=== PATIENT | male | born 1960 | race Caucasian/White ===

== ENCOUNTER 2022-09-06 12:50 | Outpatient (CLI) | payer BC, SELFPAY ==
[2022-09-06 13:10] LABS: Basophils Percent Auto 1.1 % (0.0-1.0); Eosinophils Absolute Auto 0.16 K/mm3 (0.02-0.50); Eosinophils Percent Auto 1.8 % (1.0-6.0); Hematocrit 47.3 % (40.0-54.0); Hemoglobin 16.2 g/dL (14.0-18.0); Immature Granulocyte Absolute 0.02 K/mm3 (0.00-0.00); Immature Granulocyte Percent A 0.2 % (0.0-0.0); Lymphocytes Absolute Auto 3.47 K/mm3 (1.10-4.50); Lymphocytes Percent Auto 38.9 % (18.0-42.0); Mean Corpuscular HGB Conc 34.2 g/dL (32.0-36.0); Mean Corpuscular Hemoglobin 30.3 pg (27.0-31.0); Mean Corpuscular Volume 88.6 fL (78.0-102.0); Mean Platelet Volume 10.7 fl (8.7-11.0); Monocytes Absolute Auto 0.54 K/mm3 (0.10-0.90); Monocytes Percent Auto 6.1 % (2.0-11.0); Neutrophils Absolute Auto 4.6 K/mm3 (1.7-7.2); Neutrophils Percent Auto 51.9 % (50.0-70.0); Platelet Count Result 217 K/mm3 (150-420); Red Blood Count 5.34 M/mm3 (4.70-6.10); Red Cell Distribution Width 12.8 % (11.6-14.4); White Blood Count 8.9 K/mm3 (4.8-10.8)
[2022-09-06 13:11] LABS: Appearance Urine Clear (Clear); Bilirubin Urine Negative (Negative); Blood Urine Negative (Negative); Color Urine Light Yellow (Yellow); Glucose Urine UA Negative (Negative); Ketones Urine Negative (Negative); Leukocyte Esterase Ur Negative (Negative); Nitrate Urine Negative (Negative); Protein Urine Negative (Negative); Urobilinogen Urine 0.2 mg/dL (0.2-1.0)
[2022-09-06 13:13] LABS: Add Urine Microscopic? NO
[2022-09-06 13:56] LABS: Alanine Aminotransferase 29 U/L (16-63); Albumin Level 3.9 g/dL (3.4-5.0); Alkaline Phosphatase 67 U/L (46-116); Anion Gap 8 mmol/L (8-16); Aspartate Amino Transferase 19 U/L (15-37); Bilirubin,Total 0.5 mg/dL (0.00-1.00); Blood Urea Nitrogen 14 mg/dL (7-18); Calcium 8.8 mg/dL (8.5-10.1); Carbon Dioxide 27 mmol/L (21-32); Chloride 102 mmol/L (98-108); Cholesterol 153 mg/dL (0-200); Estimated Glomerular Filt Rate > 60; Glucose 73 mg/dL (70-99); HDL Direct 40 mg/dL (40-60); LDL Cholesterol Calculated 94 mg/dL (<130); Osmolality Calculated 283 mOsm/kg (285-295); Potassium 4.3 mmol/L (3.5-5.1); Prostate Specific Antigen 1.4 ng/mL (< OR = 4.0); Sodium 137 mmol/L (136-145); Total Protein 7.2 g/dL (6.4-8.2); Triglycerides 96 mg/dL (0-150)
[2022-09-13 04:53] LABS: Hepatitis C Virus Antibody Reactive (Nonreactive)
[2022-09-13 19:21] LABS: Hepatitis C Viral RNA PCR 5290000 IU/mL
== END 2022-09-06 12:51 | disposition home or self-care (01) ==
LOC: CHSLAB 12:56
PROVIDERS: PCP Internal Medicine; Visit Provider Internal Medicine
DX: B19.20 Unspecified viral hepatitis C without hepatic coma (principal); Z13.6 Encounter for screening for cardiovascular disorders; Z12.5 Encounter for screening for malignant neoplasm of prostate
CPT/HCPCS: 36415; 80053; 80061; 81003; 84153; 85025; 86803; 87522; G0103

== ENCOUNTER 2024-09-21 14:30 | Outpatient (CLI) | payer OTHER, SELFPAY ==
[2024-09-21 14:47] LABS: Basophils Absolute Auto 0.08 K/mm3 (0.00-0.10); Eosinophils Absolute Auto 0.08 K/mm3 (0.02-0.50); Hematocrit 46.3 % (40.0-54.0); Hemoglobin 15.7 g/dL (14.0-18.0); Immature Granulocyte Absolute 0.02 K/mm3 (0.00-0.00); Immature Granulocyte Percent A 0.2 % (0.0-0.0); Lymphocytes Absolute Auto 2.61 K/mm3 (1.10-4.50); Lymphocytes Percent Auto 32.4 % (18.0-42.0); Mean Corpuscular HGB Conc 33.9 g/dL (32-36); Mean Corpuscular Hemoglobin 30.3 pg (27.0-31.0); Mean Corpuscular Volume 89.4 fL (78.0-102.0); Mean Platelet Volume 10.5 fl (8.7-11.0); Monocytes Absolute Auto 0.56 K/mm3 (0.10-0.90); Monocytes Percent Auto 6.9 % (2.0-11.0); Neutrophils Absolute Auto 4.71 K/mm3 (1.70-7.20); Neutrophils Percent Auto 58.5 % (50.0-70.0); Platelet Count Result 214 K/mm3 (150-420); Red Blood Count 5.18 M/mm3 (4.70-6.10); Red Cell Distribution Width 12.8 % (11.6-14.4); White Blood Count 8.1 K/mm3 (4.8-10.8)
--- OUTSIDE RECORDS SUMMARY | 2024-09-21 14:54 | XMS_ITS | Encounter Summary ---
Author Organization [facility] Address [address] [place] [address] Care Team Providers Care C S S Representative Name Role Phone Orlando Leal MD Primary Care Provider [phone] Reason for Visit * Reason Onset Date Comments MEDICATION REFILL 10/01/2023 Encounter Details Date Type Department Care Team (Late st Contact Info) Description 10/01/2023 Refill [facility] [address] [place] [address] Nancy Santillan, NUT FORMER-TASSEL MAKING MACHINE OPERATOR [address] [place] [id number] MEDICATION REFILL Social History Tobacco Use Types Packs/Day Years Used Date Smoking Tobacco: Former Cigarettes Smokeless Tobacco: Never Alcohol Use Standard Drinks/Week Comments Yes 0 (1 standard drink = 0.6 oz pure alcohol) on occasion- on weekends summer time. Sex and Gender Information Value Date Recorded Sex Assigned at Not on file Legal Sex Male 2:45 PM CDT Gender Identity Not on file Sexual Orientation Not on file documented as of this encounter Plan of Treatment Not on file documented as of this encounter Goals Goal Patient Goal Type Associated Problems Recent Progress Patient-Stated? Author Medication Management General On track( 024 11:39 AM CDT) Alisa Smith, RN Note: Expected end date: Omgoing Interventions: Take all medications as prescribed Let your doctor know right away about any changes in your medications Make sure to request a refill of your medication at least one week prior to your last dose documented as of this encounter Visit Diagnoses Not on filedocumented in this encounter Care Teams C S S Representative Relationship Specialty [place] [address] [place] [id number] PCP - General Internal Medicine 07/26/23 documented as of this encounter
--- OUTSIDE RECORDS SUMMARY | 2024-09-21 14:54 | XMS_ITS | Clinical Summary ---
Author Organization [facility] [employer] Address [address] [place] [address] Care Team Providers Care Cellular Biologist Name Role Phone Orlando Leal MD Primary Care Provider [phone] Source Comments [facility],non-owned Affiliates and Associated Physician Practices is amultiple site organization consisting of ambulatory clinics and hospital sitesin [place], [place], [place] and [place]. This disclosure is being madepursuant to the Care Everywhere program and may not contain all information available regarding this patient. Last updated 18.[facility] [employer] Allergies No known active allergies Medications * Be aware that medications may not be up to date on this document. Alwaysverify current medications with the patient. Epclusa 400-100 MG TABS Take 1 tablet by mouth once daily Dispense epclusa brand 28 tablet 2 08/27/2023 Active Active Problems Problem Noted Date Diagnosed Date Chronic hepatitis C without hepatic coma 023 07/26/2023 Overview (08/05/2023): 07/26/23 Fibroscan CAP 253, LSM 4.2 kPa Hepatitis Core antibody non reactive no immunity to hepatitis B Genotype 1a or 1b Family History Medical History Relation Name Comments Dementia Father COPD - Chronic Obstructive Pulmonary Disease Mother Relation Name Status Comments Father Mother Social History Tobacco Use Types Packs/Day Years Used Date Smoking Tobacco: Every Day Cigarettes Smokeless Tobacco: Never Tobacco Cessation:Ready to Q uit: Not Asked; Counseling Given: Not Answered Alcohol Use Standard Drinks/Week Comments Not Currently 0 (1 standard drink = 0.6 oz pure alcohol) on occasion- on weekends summer time. Sex and Gender Information Value Date Recorded Sex Assigned at Not on file Legal Sex Male 2:45 PM CDT Gender Identity Not on file Sexual Orientation Not on file Last Filed Vital Signs Vital Sign Reading Time Taken Comments Blood Pressure 125/89 10/04/2023 11:32 AM CDT Pulse 67 10/04/2023 11:32 AM CDT Temperature 35.9 C (96.7 F) 10/04/2023 11:32 AM CDT Respiratory Rate - - Oxygen Saturation 97% 10/04/2023 11:32 AM CDT Inhaled Oxygen Concentration - - Weight 75.5 kg (166 lb 6.4 oz) 10/04/2023 11:32 AM CDT Height 177.8 cm (5' 10) 10/04/2023 11:32 AM CDT Body Mass Index 23.88 10/04/2023 11:32 AM CDT Plan of Treatment Health Maintenance Due Date Last Done Comments COLON MONITORING 1962 COLONOSCOPY - COLON CA SCREENING 1962 CT COLONOGRAPHY - COLON CA SCREENING 1962 FIT - COLON CA SCREENING 1962 FLEX SIG - COLON CA SCREENING 1962 LIPID TESTING 1962 HIV SCREENING 1977 DTAP/TDAP/TD VACCINES (1 - Tdap) 1981 PNEUMOCOCCAL VACCINE 50+ (1 of 2 - PCV) 1981 ZOSTER VACCINE (1 of 2) 2012 HEPATITIS B VACCINE (1 of 3 - Risk 3-dose series) 2022 Respiratory Syncytial Virus (RSV) Vaccine Pt: or over 60 yrs (1 - Risk 60-74 years 1-dose series) 2022 COVID-19 VACCINE (3 - season) 2023 03/11/2021, 02/04/2021 DEPRESSION SCREENING 04/22/2024 INFLUENZA VACCINE (Season Ended) 2024 COLOGUARD (AGES 45-75) - COLON CA SCREENING 10/09/2025 10/09/2022 Colorectal Cancer Screening 10/09/2025 HEPATITIS C SCREENING Completed 10/04/2023 , 10/04/2023, 10/04/2023, Additional history exists HIB VACCINE Aged Out No longer eligi ble based on patient's age to complete this topic HPV VACCINE Aged Out No longer eligi ble based on patient's age to complete this topic MENINGOCOCCAL (Group B) VACCINE SHARED DECISION-MAKING Aged Out No longer eligible based on patient's age to complete this topic MENINGOCOCCAL GROUPS A/C/Y/W VACCINE Aged Out No longer eligible based on patient's age to complete this topic Goals Goal Patient Goal Type Associated Problems [...] one week prior to your last dose Procedures Procedure Name Priority Date/Time Associated Diagnosis Comments HEPATITIS C RNA QUANTITATIVE Routine 10/04/2023 1:24 PM CDT Chronic hepatitis C without hepatic coma from Last 3 Months or Most Recently Relevant to Health Maintenance Results * (ABNORMAL) HEPATITIS C RNA QUANTITATIVE (10/04/2023 1:24 PM CDT) Hepatitis C Virus Quant by PCR, Blood 55(H) Not detected IU/mL 10/07/2023 12:52 PM CDT [facility] Hepatitis C RNA PCR, Interp Detected( A) Not detected 10/07/2023 12:52 PM CDT [facility] Hepatitis C Quant by PCR, Log 1.7 log IU/mL 10/07/2023 12:52 PM CDT [facility] Blood BLOOD SPECIMEN / Unknown Lab Venipuncture / Unknown 10/04/2023 1:24 PM CDT 10/04/2023 1:48 PM CDT Narrative [facility] - 10/07/2023 12:52 PM CDT The Hepatitis C viral (HCV) RNA analysis utilized a serum sample, real-time reverse service operations manager PCR, and is reported as Not Detected, Detected (<12 IU/mL), Quantity (IU/mL) or >30,000,000 IU/mL. The limit of quantitation of the assay is 12 IU/mL (100% of samples with this HCV RNA level were detected). The linear range is from 12 IU/mL to 30,000,000 IU/mL. Values less than 12 IU/mL are reported as Detected (<12 IU/mL). Values greater than 30,000,000 IU/mL are reported as >30,000,000 IU/mL. The detection/quantitation of HCV RNA in serum is based on the isolation of HCV RNA with reverse service operations manager of genomic HCV RNA followed by real-time PCR in the presence of an unrelated RNA internal control. The internal control ensures that RNA is isolated, and that no general significant inhibitors of the RT-PCR process are present. The analysis was performed using a [place] FDA approved test methodology. Nancy Santillan CONDUIT CLEANER-SURVEYOR ROD HELPER LAB - CHEMISTRY KARY MOORE Final Result [facility] [address] [place], [place] [address], [facility] [phone] from Last 3 Months or Most Recently Relevant to Health Maintenance Insurance [employer]THE[employer] Care Teams Cellular Biologist Relationship Specialty Start Date End Date Orlando Leal MD [address] [place] [phone] PCP - General Internal Medicine 07/26/23
--- OUTSIDE RECORDS SUMMARY | 2024-09-21 14:54 | XMS_ITS | Data Portability ---
Author Organization [place] [facility] [employer], Main Office Address [address] [place] [address] Assessment Encounter Date Assessment Date Assessment LastModified by Organization Details LastModified Time 08/31/2022 08/31/2022 Obtain updated viral hepatitis C numbers blood work Chantix smoking cessation LD CT chest follow-up in 6-8 weeks. Family history of AAA will screen Not available 09/16/2022 14:07:21 03/19/2023 03/19/2023 Hepatology see me 6 months Tdap because of new grandbaby due in family [email or web address] Not available 03/19/2023 22:13:31 Plan of Treatment Reminders Order Date Submit Date Provider Last Modified By Organization Details Last Modified Time Details Appointments None recorded. Lab PSA, total, serum or plasma 2022 023 [facility] (Lab), [address] [place], [address], 3 09:08:32 CMP, serum or plasma 2022 023 [facility] (Lab), [address] [place], [address], 3 09:08:32 lipid panel, serum 2022 023 [facility] (Lab), [address] [place], [address], 3 09:08:32 urinalysis, microscopic 2022 023 [facility] (Lab), [address] [place], [address], 3 09:08:32 hepatitis C virus RNA, quant, PCR, serum or plasma 2022 023 [facility] (Lab), [address] [place], [address], 3 13:10:59 CBC w/ auto diff 2022 023 [facility] (Lab), [address] [place], [address], 3 09:08:33 Referral hepatologis t referral 2022 023 [email or web address] [facility], [facility] [place], [address], 4 19:00:35 Procedures None recorded. Surgeries None recorded. Imaging LDCT, chest, for lung cancer screening - Approved [id number] 08/31/2022-2022 023 [facility] ([facility] Sched[facility]), [address] [place], [address], 3 10:00:02 US, abdominal aorta 2022 023 [facility] ([facility] Scheduling), [address] [place], [address], 3 09:06:17 Medication Orders Chantix Continuing Month Box 1 mg tablet 2022 023 [email or web address] [facility] #[id number], [address], [place], [id number], 3 16:11:12 Chantix Starting Month Box 0.5 mg (11)-1 mg (42) tablets in dose pack 2022 023 [email or web address] [id number], [address], [place], [id number], 16:11:12 Patient TargetsNo targets recorded. Patient InstructionsNo instructions recorded. 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 A negat ora Colog uard resul t indic ates a low likel ihood that a color ectal cance r (CRC) or advan ellen adeno ma (naty omato us polyp s with more advan ellen pre-m align ant featu res) is prese nt. The [facility] e that a perso n with a negat ora Colog uard test has a color ectal cance r is less than 1 in 1500 (nega tive predi ctive value >99.9 %) or has an advan ellen adeno ma is less than 5.3% (nega tive predi ctive value 94.7% ). These data are based on a prosp ectiv e cross -sect ional study of 10,00 0 indiv idual s at [place] [facility] risk for color ectal cance r who were scree trista with both Colog uard and colon oscop y. (Don Brar. et al, N Engl J Med 2014; 370(1 4):12 86-12 97) The serene l value (refe rence range ) for this assay is negat ora. COLOG UARD RE-SC REENI NG RECOM MENDA TION: Perio dic color ectal cance r scree priti is an impor tant part of preve ntive healt hcare for asymp tomat ic indiv idual s at [place] risk for color ectal cance r. Follo wing a negat ora Colog uard resul t, the Ameri can Cance r Socie ty and U.S. Multi -Soci ety Task Force scree priti guide lines recom mend a Colog uard re-sc frida guajardo inter marifer of 3 years . Refer ences : Ameri can Cance r Socie ty Guide line for Color ectal Cance r Scree priti: https ://marilyn w.can cer.o rg/ca ncer/ colon -rect al-ca ncer/ detec tion- diagn osis- stagi ng/ac s-rec ommen datio ns.ht ml.; Ronnie DK, Marisol strong CR, Sindy perez JK, Color ectal Cance r Scree priti: Recom menda tions for Physi cians and Patie nts from the U.S. Multi -Soci ety Task Force on Color ectal Cance r Scree priti , Am Mandy sappntsukhdeep rolog y 2017; 112:1 016-1 030. TEST DESCR IPTIO N: [place] site algor ithmi c dylan sis of stool DNA-b rios huitron with hemog lobin immun oassa y. Quant itati ve value s of indiv idual bioma rkers are not repor table and are not assoc iated with indiv idual bioma rker resul t refer ence range s. Colog uard is inten ded for color ectal cance r scree priti of adult s of eithe r sex, 45 years or older , who are at [facility] for color ectal cance r (CRC) . Colog uard has been appro taryn for use by the U.S. FDA. The perfo rmanc e of Colog uard was estab lishe d in a cross secti onal study of [facility] adult s aged 50-84 . Colog uard perfo rmanc e in patie nts ages 45 to 49 years was estim ated by alcides-dorene mejia dylan sis of near- age group s. Colon oscop ies perfo rmed for a posit ora resul t may find as the most clini maxine signi fican t lesio n: color ectal cance r [4.0% ], advan ellen adeno ma (incl uding sessi le titus dawna polyp s great er than or equal to 1cm diame ter) [20%] or non- advan ellen adeno ma [31%] ; or no color ectal neopl marielos [45%] . These estim ates are deriv ed from a prosp ectiv e cross -sect ional scresukhdeep leosg study of 0 indiv idual s at [facility] risk for color ectal cance r who were scree trista with both Colog uard and colon oscop y. (Don Bull et al, N Engl J Med 2014; 370(1 4):12 86-12 97.) Colog uard may produ ce a false negat ora or false posit ora resul t (no color ectal cance r or preca ncero us polyp prese nt at colon oscop y follo w up). A negat ora Colog uard test resul t does not guara ntee the absen ce of CRC or advan ellen adeno ma (pre- cance r). The curre nt Colog uard scree priti inter marifer is every 3 years . (Amer ican Cance r Socie ty and U.S. Multi -Soci ety Task Force ). Colog uard perfo rmanc e data in a 0 patie nt pivot al study using colon oscop y as the refer ence metho d can be acces sed at the follo wing locat ion: www.e xactl abs.c om/re mitchell . Addit ional descr iptio n of the Colog uard test proce ss, warni ngs and preca ution s can be found at www.c ologu aubree.c om. Not Available [facility] [employer] [facility] (Cologuard Orders Only) [address], [place], [address], 10/18/2022 01:07:17 09/15/1909/14/2022 LDCT, chest , for lung cance r scree priti [facility] [place] [address] [facility] [address] [phone] Patien t Name: BRUNO EAGLE Access ion #: [id number] Sex: M : 1960 4 4 Locati on: RAD Attend ing Physic eriberto: KING LEAL Orderi ng Physic eriberto: KING LEAL Exam Date: 023 8:40 AM Exam Name: CT LOW DOSE CNCR SCREEN ING Admitt ing Diagno sis(es ): RADIOL OGY REPORT - FINAL EXAM: CT LOW DOSE CNCR SCREEN ING HISTOR Y: nicoti ne depend ence 62-yea r-old male smoker with lung cancer screen ing. COMPAR RONAK: None availa ble. TECHNI QUE: CT low dose lung screen ing protoc ol was utiliz ed. Noncon trast axial images of the chest were obtain ed using low dose comput erized tomogr aphy. Images were recons tructe d in jernigan l, sagitt al, and axial planes . The images were review ed with lung window , soft tissue , and bone window settin gs. This CT exam was perfor med using one or more of the follow ing dose reduct ion techni ques: Automa dawna exposu re contro l, adjust ment of the mA and/or kV accord ing to patien t size, or use of iterat ora recons tructi on techni que. FINDIN GS: Page 1 of [address] [facility] Patien t Name: BRUNO EAGLE Access ion #: [id number] Sex: M : 1960 4 4 Exam Date: 023 8:40 AM Exam Name: CT LOW DOSE CNCR SCREEN ING Admitt ing Diagno sis(es ): No suspic ious pulmon danni nodule s, consol idativ e infilt rates, pneumo thorax , pleura l effusi ons, or pulmon danni edema. There is modera te centri lobula r emphys nick and mild parase ptal emphys nick. No suspic ious medias tinal or axilla ry adenop athy. The heart is not enlarg ed. No thorac ic aortic aneury sm. There is mild bilate ral gyneco mastia . There is mild thorac ic degene rative disc diseas e. There is a focal bony defect of the distal sterna l body in the midlin e (image 54, series 203), likely develo pmenta l. IMPRES VALENCIA: 1. No suspic ious pulmon danni nodule s or other acute intrat horaci c proces s. 2. Centri lobula r and parase ptal emphys nick. Lung-R ADS 1. Negati ve. Contin ue annual screen ing with LDCT in 12 months . Create d and electr onical ly signed by: Chet tarango MD Signed Date: 8:57 AM (CT) Dictat ed by: Chet tarango MD DD: 8:57 AM (CT) DT: 8:57 AM (CT) Page 2 of 2 [facility] (Imaging) [address] [place], [address], 03/18/2023 12:53:56 10/02/1910/01/2022 US, [facility] [address] [address] Patien t Name: BRUNO EAGLE Access ion #: [id number] Sex: M : 1960 4 4 Locati on: RAD Attend ing Physic eriberto: KING LEAL Orderi Physic eriberto: KING LEAL Exam Date: 12:53 PM Exam Name: US AORTA Admitt ing Diagno sis(es ): RADIOL OGY REPORT - FINAL EXAM: USAOR HISTOR Y: family hx of aaa COMPAR RONAK: None. TECHNI QUE: Abdomi nal aortic ultras ound was perfor med. FINDIN GS: No abdomi nal aortic aneury sm or iliac ectasi a. Mild distal athero sclero tic plaque noted within the aorta and right common iliac artery . IMPRES VALENCIA: No eviden ce of abdomi nal aortic aneury sm or ectasi a. Page 1 of 2 [facility] Pati t Name: BRUNO EAGLE Access ion #: [id number] Sex: M : 1960 4 4 Exam Date: 12:53 PM Exam Name: US AORTA Admitt ing Diagno sis(es ): Create d and electr onical ly signed by: Jacek blount MD Signed Date: 5:37 PM (CT) Dictat ed by: Jacek blount MD DD: 5:37 PM (CT) DT: 5:37 PM (CT) Page 2 of 2 [facility] (Imaging) [address] [place], [address], 03/18/2023 12:53:57 Result Notes None recorded. Problems Name Problem SNOMED Code Status Onset Date Resolution Date Notes Provider Name and Address Organization Details Recorded Time Viral hepatitis C 53806205 Active 023 Not Available [facility] 3 12:41:20 Cough 43891491 Active 023 Ciarra Ugarte RN [facility], [facility] [employer] [facility] 3 11:58:44 Problem Notes None recorded. Procedures Surgical History Date Name Laterality Status Provider Name and Address Organization Details Recorded Time biopsy of liver completed LORRIE Newman [facility] [employer] [facility] 08/31/2022 12:34:09 Appendectomy completed LORRIE Newman [facility] [employer] [facility] 08/31/2022 12:39:37 Imaging Results None recorded. Procedure Notes None recorded. Medical Equipment None Reported. Allergies No known drug allergies Medications Name Sig Start Date Stop Date Status Note LastModified by Organization Details LastModified Time azithromycin 250 mg tablet TAKE 2 TABLETS BY MOUTH FOR 1 DAY THEN TAKE 1 TABLET BY MOUTH DAILY FOR 4 DAYS active Not Available Not Available No t Available varenicline tartrate 1 mg tablet TAKE 1 TABLET BY MOUTH TWICE DAILY DIRECTED active Not Available Not Available No t Available varenicline tartrate 0.5 mg (11)-1 mg (42) tablets in a dose pack USE DIRECTED active Not Available Not Available No t Available Vitals Date Recorded Body weight Body mass index (BMI) Body height Body temperature Heart rate Systolic blood pressure Diastolic blood pressure Provider Name and Address Organization Details Last Updated DateTime 3 31953.6 6 g 25.8 kg/m2 175.26 cm 97.3 [degF] 70 /min 126 mm[Hg] 82 mm[Hg] LORRIE Newman Ryan [facility] [employer] [facility] 3 12:36:44 Date Recorded Body height Body mass index (BMI) Body weight Body temperature Heart rate Systolic blood pressure Diastolic blood pressure Provider Name and Address Organization Details Last Updated DateTime 3 175.26 cm 25.4 kg/m2 27656.8 9 g 93.3 [degF] 75 /min 110 mm[Hg] 70 mm[Hg] LORRIE Newman [facility] [employer] [facility] 3 16:28:27 Social History Question Answer Notes LastModified by Organizat ion Details LastModified Time Tobacco Smoking Status Current Every Day Smoker [facility] [employer] [facility] 03/19/2023 15:57:20 Do You Have An Advance Directive? No Information not available 08/31/2022 Is Blood Transfusion Acceptable In An Emergency? Yes Information not available 03/19/2023 What Is Your Level Of Caffeine Consumption? Heavy [email or web address] Information not available 08/31/2022 In The 14 Days Before Symptom Onset, Have You Had Close Contact With A Laboratory-confi rmed COVID-19 While That Case Was Ill? No Information not available 03/19/2023 In The 14 Days Before Symptom Onset, Have You Had Close Contact With A Person Who Is Under Investigation For COVID-19 While That Person Was Ill? No Information not available 03/19/2023 What Type Of Diet Are You Following? REGULAR [email or web address] Information not available 08/31/2022 What Is The Highest Grade Or Level Of School You Have Completed Or The Highest Degree You Have Received? [id number] Information not available 03/19/2023 Have There Been Any Changes To Your Family Or Social Situation? No Information not available 03/19/2023 What Is The Fluoride Status Of Your Home? Unknown Information not available 03/19/2023 Do You Use Insect Repellent Routinely? No Information not available 03/19/2023 Where Do You Live? [facility] Information not available 03/19/2023 Do You Have A Medical Power Of Medical Scientific Officer? No Information not available 03/19/2023 What Was The Date Of Your Most Recent Tobacco Screening? 03/19/2023 [email or web address] Information not available 03/19/2023 How Many Children Do You Have? 5 Information not available 03/19/2023 What Is Your Current Pack Years? [email or web address] Information not available 03/19/2023 Do You Have Any Pets? Yes Information not available 03/19/2023 What Is Your Relationship Status? [email or web address] Information not available 08/31/2022 Do You Use Your Seat Belt Or Car Seat Routinely? Yes Information not available 03/19/2023 Do You Have Smoke And Carbon Monoxide Detectors In Your Home? Yes Information not available 03/19/2023 Are You Passively Exposed To Smoke? Yes Information not available 03/19/2023 Are There Any Smokers In Your House? No Information not available 03/19/2023 How Much Tobacco Do You Smoke? 1 PPD 3/4 PPD [email or web address] Information not available 03/19/2023 Do You Use Sunscreen Routinely? No Information not available 03/19/2023 Have You Recently Traveled Abroad? No Information not available 03/19/2023 Do You Have Any Dietary Restrictions? No Information not available 03/19/2023 Sex: Male Functional Status Question Answer Note LastModified by Organizat ion Details LastModified Time Do you use any illicit or recreational drugs? No Information not available 03/19/2023 Do you or have you ever used any other forms of tobacco or nicotine? No Information not available 03/19/2023 What is your level of alcohol consumption? Occasional [email or web address] Information not available 08/31/2022 Are you currently employed? 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 None [email or web address] Information not available 08/31/2022 Mental Status Question Answer Note LastModified by Organization D etails LastModified Time Do you feel stressed (tense, restless, nervous, or anxious, or unable to sleep at night)? [id number] Information not available 03/19/2023 Family History Relationship Description Onset Age of this Age Resolved Age Notes LastModified by Organization Details LastModified Time Father Alzheimer's disease [email or web address] Not available 2022 15:57:19 Father Diabetes mellitus [email or web address] Not available 08/20 12:29:48 Medical History Condition Response SKIN PROBLEMS Y BACK / NECK PROBLEMS Y DEPRESSION (INCLUDING POST ) Y HEPATITIS / LIVER DISEASE Y Immunizations Vaccine Type Date Status Note Provider Nam e and Address Organization Details Recorded Time COVID-19, mRNA, LNP-S, PF, 100 mcg/0.5mL dose or 50 mcg/0.25mL dose 02/04/2021 completed Not Available [facility] 3 12:41:20 COVID-19, mRNA, LNP-S, PF, 100 mcg/0.5mL dose or 50 mcg/0.25mL dose 03/11/2021 completed Not Available [facility] 3 12:41:20 Tdap 03/19/2023 completed Orlando Leal MD [address] [facility], [place], [address], [facility] 03/19/2023 22:11:29 Past Encounters Encounter ID Performer Location Encounter Start Date Encounter Closed Date Diagnosis/Indication Diagnosis SNOMED-CT Code Diagnosis ICD10 Code Diagnosis Note [id number] Orlando Leal MD [facility] [address] [place] [address] 08/31/2022 12:18:43 08/31/2022 13:33:33 Viral hepatitis C 71889635 B19.20 Screening for cardiovascular system disease 797076180 Z13.6 Nicotine dependence 5629 4008 Z87.891 Screening for malignant neoplasm of prostate 792253793 Z12.5 Family his tory of Aortic aneurysm 143089746 Z82.49 [id number] Orlando Leal MD [facility] Internal Med [address] [facility] [place] [address] 03/19/2023 15:56:36 03/19/2023 17:23:31 Administration of tetanus vaccine 699339172 Z23 Viral hepatitis C 227595 07 B19.20 Health Concerns Section Related Observation LastModified by Organization Detai ls LastModified Time None Recorded Concern Status LastModified by Organization Details LastModified Time None Recorded Advance Directives Directive N: Payers Encounter Date Sequence Insurance Name Policy Number Policy Elizondo Covered Member ID Elizondo Member ID Guarantor Name 08/31/2022 1 [employer] [id number] 2 Fletcher Martino [id number] Fletcher Martino 03/19/2023 1 [place] [id number] 2 Fletcher Martino [id number] Fletcher Martino Notes Date Note Type Note Provider Name and Address Organization Details Recorded Time 08/31/2022 text/html 62-year-old come s in new patient history of being told that he had hepatitis-C in the past actually may have gone all the way to liver biopsy but does not sound like he was ever treated asymptomatic meds none allergies none surgeries for skin cancer fatty tumor appendectomy COVID shots x2 flu shot negative pack-a-day smoker no alcohol no drugs 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
[2024-09-21 15:16] LABS: Alanine Aminotransferase 17 U/L (6-50); Albumin Level 4.1 g/dL (3.5-5.1); Alkaline Phosphatase 55 U/L (38-126); Anion Gap 3 mmol/L (4-12); Aspartate Amino Transferase 30 U/L (17-59); Bilirubin,Total 0.8 mg/dL (0.2-1.3); Blood Urea Nitrogen 15 mg/dL (9-20); Calcium 8.9 mg/dL (8.4-10.2); Carbon Dioxide 30 mmol/L (22-30); Chloride 105 mmol/L (98-107); Cholesterol 153 mg/dL (0-200); Estimated Glomerular Filt Rate > 60; Glucose 97 mg/dL (65-110); HDL Direct 47 mg/dL; LDL Cholesterol Calculated 85 mg/dL (<130); Osmolality Calculated 286 mOsm/kg (285-295); Potassium 4.1 mmol/L (3.4-5.0); Sodium 138 mmol/L (137-145); Total Protein 6.7 g/dL (6.3-8.2); Triglycerides 105 mg/dL (<150)
[2024-09-21 21:01] LABS: Prostate Specific Antigen 0.9 ng/mL (< OR = 4.0)
== END 2024-09-21 14:31 | disposition home or self-care (01) ==
LOC: CHSLAB 14:38
PROVIDERS: PCP Internal Medicine; Visit Provider Internal Medicine
DX: Z12.5 Encounter for screening for malignant neoplasm of prostate (principal); Z13.6 Encounter for screening for cardiovascular disorders
CPT/HCPCS: 36415; 80053; 80061; 84153; 85025; G0103

== ENCOUNTER 2024-10-26 09:50 | Outpatient (CLI) | payer OTHER, SELFPAY ==
--- OUTSIDE RECORDS SUMMARY | 2024-10-26 09:57 | XMS_ITS | Data Portability ---
Author Organization [place] [facility], Main Office Address [address] [place] [address] Assessment Encounter Date Assessment Date Assessment LastModified by Organization Details LastModified Time 08/31/2022 08/31/2022 Obtain updated viral hepatitis C numbers blood work Chantix smoking cessation LD CT chest follow-up in 6-8 weeks. Family history of AAA will screen Not available 09/16/2022 14:07:21 03/19/2023 03/19/2023 Hepatology see me 6 months Tdap because of new grandbaby due in family [email or web address] Not available 03/19/2023 22:13:31 Plan of Treatment Reminders Order Date Submit Date Provider Last Modified By Organization Details Last Modified Time Details Appointments None recorded. Lab PSA, total, serum or plasma 2022 023 [facility] (Lab), [address] [place], [address], 3 09:08:32 CMP, serum or plasma 2022 023 [facility] (Lab), [address] [place], [address], 3 09:08:32 lipid panel, serum 2022 023 [facility] (Lab), [address] [place], [address], 3 09:08:32 urinalysis, microscopic 2022 023 [facility] (Lab), [address] [place], [address], 3 09:08:32 hepatitis C virus RNA, quant, PCR, serum or plasma [address] [facility] (Lab), [address] [place], [address], 3 13:10:59 CBC w/ auto diff 2022 023 [facility] (Lab), [address] [place], [address], 3 09:08:33 Referral hepatologis t referral 2022 023 [email or web address] [facility], [address] [place], [address], 4 19:00:35 Procedures None recorded. Surgeries None recorded. Imaging LDCT, chest, for lung cancer screening - Approved [id number] 08/31/2022-2022 023 [facility] ([facility]), [address] [place], [address], 3 10:00:02 US, abdominal aorta 2022 023 [facility] ([facility]), [address] [place], [address], 3 09:06:17 Medication Orders Chantix Continuing Month Box 1 mg tablet 2022 023 [email or web address] [id number], [address], [place], [id number], 3 16:11:12 Chantix Starting Month Box 0.5 mg (11)-1 mg (42) tablets in dose pack 2022 023 [email or web address] [id number], [address] [place], [id number], 3 16:11:12 Patient TargetsNo targets recorded. Patient InstructionsNo instructions recorded. 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 A negat ora Colog uard resul t indic ates a low likel ihood that a color ectal cance r (CRC) or advan ellen adeno ma (naty omato us polyp s with more advan ellen pre-m align ant featu res) is prese nt. The [facility] e that a perso n with a [...] of 10,00 0 [facility] [place] [facility] risk for color ectal cance r [...] asymp tomat ic indiv idual s at [place] [facility] risk for color ectal cance r. [...] Color ectal Cance r Scree priti: https ://ww w.can cer.o rg/ca ncer/ colon -rect al-ca ncer/ detec tion- diagn osis- stagi ng/ac s-rec ommen datio ns.ht ml.; Ronnie FARRELL, Marisol strong CR, Sindy perez JK, Color ectal Cance r Scree priti: Recom menda tions for Physi cians and Patie nts from the U.S. Multi -Soci ety Task Force on Color ectal Cance r Scree priti , Am Mandy llanos y 2017; 112:1 016-1 030. TEST DESCR IPTIO N: [place] site algor ithmi c dylan sis of stool DNA-b ioshea huitron with hemog lobin immun oassa y. [...] years or older , who are at [facility] for color ectal cance r (CRC) . Colog uard has been appro taryn for use by the U.S. FDA. The perfo rmanc e of Colog uard was estab lishe d in a cross secti onal study of [facility] adult s aged 50-84 . Colog uard perfo rmanc e in patie nts ages 45 to 49 years was estim ated by sub-g roup dylan sis of near- age group s. [...] study of 0 indiv idual s at [facility] risk for color ectal cance r who were scree trista with both Colog uard and colon oscop y. (Don Irby al, N Engl J Med 2014; 370(1 [...] d can be acces sed at the [facility] wing locat ion: www.e xactl abs.c om/re mitchell . Addit ional descr iptio n of the Colog uard test proce ss, warni ngs and preca ution s can be found at www.c ologu aubree.c om. Not Available [facility] (Cologuard Orders Only) [address], [place], [address], 10/18/2022 01:07:17 09/15/1909/14/2022 LDCT, chest , for lung cance r scree priti [facility] [address] [facility], [place] [address] Patien t Name: BRUNO EAGLE Access ion #: [id number] Sex: M : 1960 4 4 [...] que. FINDIN GS: Page 1 of 2 [facility] Patien t Name: BRUNO EAGLE Access ion #: [id number] Sex: M : 1960 4 4 [...] 8:57 AM (CT) Page 2 of 2 [facility] (Imaging) [address] [place], [address], 03/18/2023 12:53:56 10/02/1910/01/2022 US, abdom inal aorta [facility] [address] [place] [address] Patien t Name: BRUNO EAGLE Access ion #: [id number] Sex: M : 1960 4 4 Locati on: RAD Attend ing Physic eriberto: [facility]: KING LEAL Exam Date: 12:53 [...] or ectasi a. Page 1 of 2 [facility] Patien t Name: BRUNO EAGLE Access ion #: [id number] Sex: M : 1960 4 4 Exam Date: 12:53 PM Exam Name: US AORTA Admitt ing Diagno sis(es ): Create d and electr onical ly signed by: Jacek blount MD Signed Date: 5:37 PM (CT) Dictat ed by: Jacek blount MD DD: 5:37 PM (CT) DT: 5:37 PM (CT) Page 2 of 2 [facility] (Imaging) [address] [place], [address], 03/18/2023 12:53:57 Result Notes Documentation Provider Name and Address Organization Details Recorded Time Ldct, Chest, For Lung Cancer Screening : [facility] [address] [place], [place] [id number] Patient Name: IZABELLA PEACE Sex: M : 1960 Location: [facility] Attending Physician: JACLYN LEAL Ordering Physician: JACLYN LEAL Exam Date: 09/14/2022 8:40 AM Exam Name: CT LOW DOSE CNCR SCREENING Admitting Diagnosis(es): RADIOLOGY REPORT - FINAL EXAM: CT LOW DOSE CNCR SCREENING HISTORY: nicotine dependence 62-year-old male smoker with lung cancer screening. COMPARISON: None available. TECHNIQUE: CT low dose lung screening protocol was utilized. Noncontrast axial images of the chest were obtained using low dose computerized tomography. Images were reconstructed in coronal, sagittal, and axial planes. The images were reviewed with lung window, soft tissue, and bone window settings. This CT exam was performed using one or more of the following dose reduction techniques: Automated exposure control, adjustment of the mA and/or kV according to patient size, or use of iterative reconstruction technique. FINDINGS: Page 1 of 2 [facility] Patient Name: IZABELLA PEACE Sex: M : 1960 Exam Date: 09/14/2022 8:40 AM Exam Name: CT LOW DOSE CNCR SCREENING Admitting Diagnosis(es): No suspicious pulmonary nodules, consolidative infiltrates, pneumothorax, pleural effusions, or pulmonary edema. There is moderate centrilobular emphysema and mild paraseptal emphysema. No suspicious mediastinal or axillary adenopathy. The heart is not enlarged. No thoracic aortic aneurysm. There is mild bilateral gynecomastia. There is mild thoracic degenerative disc disease. There is a focal bony defect of the distal sternal body in the midline (image 54, series 203), likely developmental. IMPRESSION: 1. No suspicious pulmonary nodules or other acute intrathoracic process. 2. Centrilobular and paraseptal emphysema. Lung-RADS 1. Negative. Continue annual screening with LDCT in 12 months. Created and electronically signed by: Chet Ortega MD Signed Date: 09/14/2022 8:57 AM (CT) Dictated by: Chet Ortega MD (CT) (CT) Page 2 of 2 LORRIE Hoover [facility] 03/18/2023 12:53:57 Problems Name Problem SNOMED Code Status Onset Date Resolution Date Notes Provider Name and Address Organization Details Recorded Time Viral hepatitis C 59878760 Active 023 Not Available [employer] 3 12:41:20 Cough 67470050 Active 023 Ciarra Ugarte RN [facility] 3 11:58:44 Problem Notes None recorded. Procedures Surgical History Date Name Laterality Status Provider Name and Address Organization Details Recorded Time biopsy of liver completed LORRIE Newman [employer] [facility] 08/31/2022 12:34:09 Appendectomy completed LORRIE Newman [facility] 08/31/2022 12:39:37 Imaging Results None recorded. Procedure [...] Body height Body temperature Heart rate Systolic And Diastolic Provider Name and Address Organization Details Last Updated DateTime 3 90092.6 6 g 25.8 kg/m2 175.26 cm 97.3 [degF] 70 /min 126/82 mm[Hg] LORRIE Newman [employer] 3 12:36:44 Date Recorded Body height Body mass index (BMI) Body weight Body temperature Heart rate Systolic And Diastolic Provider Name and Address Organization Details Last Updated DateTime 3 175.26 cm 25.4 kg/m2 99350.8 9 g 93.3 [degF] 75 /min 110/70 mm[Hg] LORRIE Newman [employer] [facility] 3 16:28:27 Social History Question Answer Notes LastModified by Organizat ion Details LastModified Time Tobacco Smoking Status Current Every Day Smoker LORRIE Hoover [facility] 03/19/2023 15:57:20 Do You Have An Advance Directive? No [email or web address] Information not available 08/31/2022 Is Blood Transfusion Acceptable In An Emergency? Yes Information not available 03/19/2023 What Is Your Level Of Caffeine Consumption? Heavy [email or web address] Information not available 08/31/2022 In The 14 [...] Type Of Diet Are You Following? REGULAR [email or web address] Information not available 08/31/2022 What Is The Highest Grade Or Level Of School You Have Completed Or The Highest Degree You Have Received? [id number] Information not available 03/19/2023 Have There Been Any Changes To Your Family Or Social Situation? No Information not available 03/19/2023 What Is The Fluoride Status Of Your Home? Unknown Information not available 03/19/2023 Do You Use Insect Repellent Routinely? No Information not available 03/19/2023 Where Do You Live? [facility] Information not available 03/19/2023 Do You Have A Medical Power Of Head Batcher? No Information not available 03/19/2023 What Was The Date Of Your Most Recent Tobacco Screening? 03/19/2023 [email or web address] Information not available 03/19/2023 How Many Children Do You Have? 5 Information not available 03/19/2023 What Is Your Current Pack Years? [email or web address] Information not available 03/19/2023 Do You Have Any Pets? Yes Information not available 03/19/2023 What Is Your Relationship Status? [email or web address] Information not available 08/31/2022 Do You Use [...] Do You Smoke? 1 PPD 3/4 PPD [email or web address] Information not available 03/19/2023 Do You Use [...] is your level of alcohol consumption? Occasional [email or web address] Information not available 08/31/2022 Are you currently employed? 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 None [email or web address] Information not available 08/31/2022 Mental Status Question Answer Note LastModified by Organization D etails LastModified Time Do you feel stressed (tense, restless, nervous, or anxious, or unable to sleep at night)? [id number] Information not available 03/19/2023 Family History Relationship Description Onset Age of this Age Resolved Age Notes LastModified by Organization Details LastModified Time Father Alzheimer's disease cyahl Not available 2022 15:57:19 Father Diabetes mellitus [email or web address] Not available 08/20 12:29:48 Medical History Condition Response SKIN PROBLEMS Y DEPRESSION (INCLUDING POST ) Y BACK / NECK PROBLEMS Y HEPATITIS / LIVER DISEASE Y Immunizations Vaccine Type Date Status Note Provider Nam e and Address Organization Details Recorded Time COVID-19, mRNA, LNP-S, PF, 100 mcg/0.5mL dose or 50 mcg/0.25mL dose 02/04/2021 completed Not Available [facility] 3 12:41:20 COVID-19, mRNA, LNP-S, PF, 100 mcg/0.5mL dose or 50 mcg/0.25mL dose 03/11/2021 completed Not Available [facility] 3 12:41:20 Tdap 03/19/2023 completed Jaclyn Leal MD [address] [facility], [address], [place], [address], [facility] 03/19/2023 22:11:29 Past Encounters Encounter ID Performer Location Encounter Start Date Encounter Closed Date Diagnosis/Indication Diagnosis SNOMED-CT Code Diagnosis ICD10 Code Diagnosis Note [id number] Jaclyn Leal MD [facility] Internal Med [address] [place] [address] 08/31/2022 12:18:43 08/31/2022 13:33:33 Viral hepatitis C 19667649 B19.20 Screening for cardiovascular system disease 032068979 Z13.6 Nicotine dependence 5629 4008 Z87.891 Screening for malignant neoplasm of prostate 613452548 Z12.5 Family his tory of Aortic aneurysm 416346051 Z82.49 [id number] Jaclyn Leal MD [facility] Internal Med [address] king [address] [facility] [place] [address] 03/19/2023 15:56:36 03/19/2023 17:23:31 Administration of tetanus vaccine 172783418 Z23 Viral hepatitis C 195429 07 B19.20 Health Concerns Section Related Observation LastModified by Organization Detai ls LastModified Time None Recorded Concern Status LastModified by Organization Details LastModified Time None Recorded Advance Directives Directive N: Payers Insurance Date Sequence Insurance Name Policy Number Policy Elizondo Covered Member ID Elizondo Member ID Guarantor Name 03/19/2023 1 HODA (PPO) [id number] 2 Izabella Peace [id number] Izabella Peace Notes Date Note Type Note Provider Name [...] pack-a-day smoker no alcohol no drugs 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
--- OUTSIDE RECORDS SUMMARY | 2024-10-26 09:57 | XMS_ITS | Clinical Summary ---
Author Organization [facility] Address [address] [place] [address] Care Team Providers Care Booth Supervisor Name Role Phone Orlando Leal MD Primary Care Provider [phone] Source Comments [facility],non-owned Affiliates and Associated Physician Practices is amultiple site organization consisting of ambulatory clinics and hospital sitesin [place], [place], [place] and [place]. This disclosure is being madepursuant to the Care Everywhere program and may not contain all information available regarding this patient. Last updated 18.[facility] Allergies No known active allergies Medications * [...] 03/11/2021, 02/04/2021 DEPRESSION SCREENING 04/22/2024 INFLUENZA VACCINE (#1) 2024 COLOGUARD (AGES 45-75) - COLON CA [...] Not detected IU/mL 10/07/2023 12:52 PM CDT [facility] Hepatitis C RNA PCR, Interp Detected( A) Not detected 10/07/2023 12:52 PM CDT [facility] Hepatitis C Quant by PCR, Log 1.7 log IU/mL 10/07/2023 12:52 PM CDT [facility] Blood BLOOD SPECIMEN / Unknown Lab Venipuncture / Unknown 10/04/2023 1:24 PM CDT 10/04/2023 1:48 PM CDT Narrative [facility] - 10/07/2023 12:52 PM CDT The Hepatitis C viral (HCV) RNA analysis utilized a serum sample, real-time reverse television servicer PCR, and is reported as Not Detected, [...] the isolation of HCV RNA with reverse television servicer of genomic HCV RNA followed by real-time PCR in the presence of an unrelated RNA internal control. The internal control ensures that RNA is isolated, and that no general significant inhibitors of the RT-PCR process are present. The analysis was performed using a U.S. FDA approved test methodology. Nancy Santillan STRATEGIC PLANNING MANAGER-CURRICULUM DIRECTOR LAB - CHEMISTRY KARY MOORE Final Result [facility] [address] [place], [place] [address], [facility] [phone] from Last 3 Months or Most Recently Relevant to Health Maintenance Insurance ANTHEM Care Teams Booth Supervisor Relationship Specialty Start Date End Date Orlando Leal MD [address] [place] [address] PCP - General Internal Medicine 07/26/23
--- OUTSIDE RECORDS SUMMARY | 2024-10-26 09:57 | XMS_ITS | Encounter Summary ---
Author Organization [facility] Address [address] [place] [address] Care Team Providers Care Track Patrol Name Role Phone Orlando Leal MD Primary Care Provider [phone] Reason for Visit * Reason Onset Date Comments MEDICATION REFILL 10/01/2023 Encounter Details Date Type Department Care Team (Late st Contact Info) Description 10/01/2023 Refill [facility] [address] [facility], [place] [address] Nancy Santillan, TAR DISTRIBUTOR OPERATOR-DRAFTER AUTOMOTIVE DESIGN [address] [place] [address] MEDICATION REFILL Social History Tobacco Use Types [...] on filedocumented in this encounter Care Teams Track Patrol Relationship Specialty [place] [address] [place] [address] PCP - General Internal Medicine 07/26/23 documented as of this encounter
--- OUTSIDE RECORDS SUMMARY | 2024-10-26 09:57 | XMS_ITS | Data Portability ---
Author Organization [facility] Address [address] [place] [address] Care Team Providers Care Public Finance Specialist Name Role Phone ORLANDO LEAL Primary Care Provider [phone] Assessment Encounter Date Assessment Date Assessment LastModified by Organization Details LastModified Time 03/02/2024 03/02/2024 hand surgeon smoking cessation. Hand surgeon consult healthy lifestyle care instructions to help lose weight quitting tobacco care instructions blood work ordered obtain his Cologuard results follow up late April get old records see if he is due for LD CT [email or web address] Not available 03/04/2024 23:09:04 Plan of Treatment Reminders Order Date Submit Date Provider Last Modified By Organization Details Last Modified Time Details Appointments ANY 15 2024 03:15P Tracy Leal MD Not available Not available Not available Lab PSA, total, serum or plasma 2023 [facility] (Lab), [address] [place] [address], [id number], 09/18/2024 16:56:52 CBC w/ auto diff [address] [facility] (Lab), [address] [place] [address], [id number], 09/18/2024 16:57:49 CMP, serum or plasma [address] [facility] (Lab), [address] [place] [address], [id number], 09/18/2024 16:57:27 lipid panel, serum [address] [facility] (Lab), [address] [facility], [place], [address], 09/18/2024 16:57:11 Referral hand surgeon referral 2023 024 [place], [address] [address] [facility], [place], [address], 09/24/2024 11:45:50 Procedures None recorded. Surgeries None recorded. Imaging None recorded. Medication Orders None recorded. Patient TargetsNo targets recorded. Patient Instructions Encounter Date Encounter Id Patient Instructions Last Modified By Organization Details Last Modified Time 03/02/2024 [id number] Quitting Tobacco : Care Instructions Not available 03/02/2024 21:09:20 A healthy lifestyle: care instructions [email or web address] Not available 03/02/2024 21:09:20 Reason for Referral Hand Surgeon Referral for Pa in of left hand Referring Physician: Orlando Leal, Internal Medicine, Encounter Date: 03/02/2024 Results Created Date Observation Date Name Description Value Unit Range Abnormal Flag Note LastModifiedBy Organization Detail LastModifiedTime Result Notes None recorded. Medical Equipment None Reported. Allergies No known drug allergies Medications Name Sig Start Date Stop Date Status Note LastModified by Organization Details LastModified Time azithromyci n 250 mg tablet TAKE 2 TABLETS BY MOUTH FOR 1 DAY THEN TAKE 1 TABLET BY MOUTH DAILY FOR 4 DAYS 03/02 completed Not Available Not Available Not Available Zoloft 50 mg tablet Take 1 tablet every day by oral route. 2024 active Not Available Not Available Not Avai lable varenicline tartrate 1 mg tablet TAKE 1 TABLET BY MOUTH TWICE DAILY DIRECTED 09/24 completed Not Available Not Available Not Available varenicline tartrate 0.5 mg (11)-1 mg (42) tablets in a dose pack USE DIRECTED 03/02 completed Not Available Not Available Not Available Epclusa 400 mg-100 mg tablet 09/24 completed Not Available Not Available Not Available Paxlovid 300 mg (150 mg x 2)-100 mg tablets in a dose pack TK 2 NIRMATREL VIR TS AND 1 RITONAVIR T TOGETHER PO 03/02 completed Not Available Not Available Not Available Vitals Date Recorded Body height Body mass index (BMI) Body weight Heart rate Oxygen saturation Oxygen saturation in Arterial blood by Pulse oximetry Systolic And Diastolic Provider Name and Address Organization Details Last Updated DateTime 5 175.26 cm 22.1 kg/m2 78495.4 2 g 72 /min 100 % 100 % 136/86 mm[Hg] Smita García MA [facility] 5 11:43:11 Date Recorded Body weight Body mass index (BMI) Body height Heart rate Oxygen saturation Oxygen saturation in Arterial blood by Pulse oximetry Systolic And Diastolic Provider Name and Address Organization Details Last Updated DateTime 4 68707.6 4 g 23.2 kg/m2 175.26 cm 75 /min 96 % 96 % 114/68 mm[Hg] Mary Mathew MA [facility] 4 16:27:38 Social History Question Answer Notes LastModified by Organizat ion Details LastModified Time Tobacco Smoking Status Current Every Day Smoker Mary Mathew [facility] 03/02/2024 16:23:10 Do You Have An Advance Directive? No Information n ot available 03/02/2024 Are You Blind Or Do You Have Difficulty Seeing? No Information n ot available 03/02/2024 What Is Your Level Of Caffeine Consumption? Moderate Information not available 03/02/2024 In The 14 Days Before Symptom Onset, Have You Had Close Contact With A Laboratory-confirm ed COVID-19 While That Case Was Ill? No Information n ot available 03/02/2024 In The 14 Days Before Symptom Onset, Have You Had Close Contact With A Person Who Is Under Investigation For COVID-19 While That Person Was Ill? No Information not available 03/02/2024 Have You Been To An Area Known To Be High Risk For COVID-19? No Information not available 03/02/2024 Are You Deaf Or Do You Have Serious Difficulty Hearing? No Information not available 03/02/2024 What Type Of Diet Are You Following? REGULAR Information n ot available 03/02/2024 Are There Any Guns Present In Your Home? No Information not available 03/02/2024 What Was The Date Of Your Most Recent Tobacco Screening? 09/24/2024 Information not available 09/24/2024 What Is Your Current Pack Years? 10packyears Information not available 03/02/2024 What Is Your Relationship Status? Information not available 03/02/2024 Do You Use Your Seat Belt Or Car Seat Routinely? Yes Information not available 03/02/2024 Do You Have Smoke And Carbon Monoxide Detectors In Your Home? Yes Information not available 03/02/2024 How Much Tobacco Do You Smoke? 1 PPD Information not available 03/02/2024 Do You Use Sunscreen Routinely? Yes Information not available 03/02/2024 Has Tobacco Cessation Counseling Been Provided? Yes Information not available 03/02/2024 On What Date Was Tobacco Cessation Counseling Provided? 09/24/2024 Information not available 09/24/2024 How Many Years Have You Smoked Tobacco? 20 Information not available 03/02/2024 Sex: Male Functional Status Question Answer Note LastModified by Organizat ion Details LastModified Time Do you use any illicit or recreational drugs? No Information not available 03/02/2024 Do you or have you ever used any other forms of tobacco or nicotine? No Information not available 03/02/2024 What is your level of alcohol consumption? Occasional Information not available 03/02/2024 Are you currently employed? Yes Information not available 03/02/2024 Are you able to care for yourself? 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 None Information not available 03/02/2024 Mental Status Question Answer Note LastModified by Organization D etails LastModified Time Do you feel stressed (tense, restless, nervous, or anxious, or unable to sleep at night)? [id number] Information not available 03/02/2024 Family History Nothing Reported. Medical History Condition Response Hepatitis Y Immunizations Vaccine Type Date Status Note Provider Nam e and Address Organization Details Recorded Time COVID-19, mRNA, LNP-S, PF, 100 mcg/0.5mL dose or 50 mcg/0.25mL dose 02/04/2021 completed Not Available [facility] 11:14:33 COVID-19, mRNA, LNP-S, PF, 100 mcg/0.5mL dose or 50 mcg/0.25mL dose 03/11/2021 completed Not Available [facility] 11:14:33 Tdap 03/19/2023 completed Not Available [facility] 09/24/2024 11:14:33 Past Encounters Encounter ID Performer Location Encounter Start Date Encounter Closed Date Diagnosis/Indication Diagnosis SNOMED-CT Code Diagnosis ICD10 Code Diagnosis Note [id number] Orlando Leal MD [facility] [place] [address] [employer] [id number] 03/02/2024 15:48:01 03/02/2024 17:44:44 Smoker 78645573 F17.200 Body mass index 20-24 - normal 899004543 Z68.23 Screening for cardiovascular system disease 872448856 Z13.6 Screening for malignant neoplasm of prostate 591745199 Z12.5 Pain of left hand 737411 9222 71569 M79.642 History of hepatitis C 3990973102 9101 Z86.19 [id number] Orlando Leal MD [facility] [place] [address] [employer] [employer] [place] [id number] 09/24/2024 11:12:51 09/24/2024 12:58:05 Body mass index 20-24 - normal 714095711 Z68.22 Overweight 941457655 E66 .3 Finding of tobacco use and exposure 706964366 Z72.0 Smoker 16317203 F17.200 Anxiety 81600484 F41.9 Intermitte nt claudication 00856329 I73.9 Health Concerns Section Related Observation LastModified by Organization Detai ls LastModified Time None Recorded Concern Status LastModified by Organization Details LastModified Time None Recorded Advance Directives Directive N: Payers Insurance Date Sequence Insurance Name Policy Number Policy Elizondo Covered Member ID Elizondo Member ID Guarantor Name 09/20/2024 1 [facility] (POS II) [id number] Fletcher Martino [id number] Fletcher Martino Notes Date Note Type Note Provider Name and Address Organization Details Recorded Time 03/02/2024 text/html 63-year-old with a history of treated hepatitis-C also now with thickened tendon left hand that is causing him some difficulty continues to smoke meds none allergies none surgeries denied family history thinks his brother had a AAA socially pack a day smoker for many years very little alcohol use still works he is not taking flu shots or COVID shots or shingles shots Orlando Leal MD Attn: Accounting,[address] [place], [address], [facility] 03/04/2024 23:09:31
--- OUTSIDE RECORDS SUMMARY | 2024-10-26 09:57 | XMS_ITS | Clinical Summary ---
Author Organization [facility] Address [address] [place] [address] Care Team Providers Care Messenger Office Name Role Phone Unavailable Primary Care Provider Unavailabl e Social History Tobacco Use Types Packs/Day Years Used Date Smoking Tobacco: Never Assessed Sex and Gender Information Value Date Recorded Sex Assigned at Not on file Legal Sex Male 11:17 AM CDT Gender Identity Not on file Sexual Orientation Not on file Plan of Treatment Health Maintenance Due Date Last Done Comments Colorectal Cancer Screening Colonoscopy (10 Years) 1962 Annual Physical 1965 Hepatitis C 1980 DTaP, Tdap and Td Vaccines ( 1 - Tdap) 1981 Pneumococcal Vaccine: 50+ Ye ars (1 of 1 - PCV) 2012 Zoster Vaccines (1 of 2) 2012 COVID-19 Vaccine ( - 2023-2 5 season) 2023 RSV Immunization or 60+ Years (1 - 1-dose 75+ series) 2037 Meningococcal B Vaccine Aged Out No l onger eligible based on patient's age to complete this topic Meningococcal Vaccine Aged Out No casey soco eligible based on patient's age to complete this topic RSV Immunizations Under 20 Months Aged Out No longer eligible based on patient's age to complete this topic
--- NOTE | 2024-10-26 11:15 | NEURO_ITS ---
Impression: # Complains of numbness of feet. Non-diabetic with no history of back problems. ? # Normal motor and sensory Nerve Conduction Study. ? # Needle/EMG exam not requested. ? # Clinical correlation recommended. Nerve Conduction Studies ?Stim Site NR Peak (ms) P-T Amp (?V) Site1 Site2 Delta-P (ms) Dist (cm) Andi (m/s) Left Sup Fibular Anti Sensory (Ant Lat Mall) 14 cm ? 3.2 23.9 14 cm Ant Lat Mall 3.2 16.0 50 Right Sup Fibular Anti Sensory (Ant Lat Mall) 14 cm ? 3.1 11.6 14 cm Ant Lat Mall 3.1 16.0 52 Left Sural Anti Sensory (Lat Mall) Calf ? 3.8 8.7 Calf Lat Mall 3.8 16.0 42 Right Sural Anti Sensory (Lat Mall) Calf ? 3.5 6.5 Calf Lat Mall 3.5 16.0 46 ?Stim Site NR Onset (ms) O-P Amp (mV) Site1 Site2 Delta-0 (ms) Dist (cm) Andi (m/s) Left Peroneal Motor (Vastus Med) Ankle ? 4.5 3.6 Popit Ankle 9.3 44.0 47 Popit ? 13.8 4.4 Right Peroneal Motor (Vastus Med) Ankle ? 4.7 4.4 Popit Ankle 8.6 40.0 47 Popit ? 13.3 4.0 Left Tibial Motor (Abd Hernandez Brev) Ankle ? 4.5 3.0 Knee Ankle 8.5 44.0 52 Knee ? 13.0 2.7 Right Tibial Motor (Abd Hernandez Brev) Ankle ? 4.5 2.4 Knee Ankle 8.1 41.0 51 Knee ? 12.6 3.7
== END 2024-10-26 09:51 | disposition home or self-care (01) ==
LOC: ANHNEURO 09:53
PROVIDERS: PCP Internal Medicine; Visit Provider Internal Medicine
DX: I73.9 Peripheral vascular disease, unspecified (principal); R20.0 Anesthesia of skin
CPT/HCPCS: 95910

== ENCOUNTER 2025-02-18 09:45 | Outpatient (CLI) | payer OTHER, SELFPAY ==
--- NOTE | ~2025-02-18 | CT_ITS ---
EXAMINATION:CT lung screening DATE: 02/18/2025 10:03 INDICATION: Personal history of nicotine dependence. TECHNIQUE: Computed tomography (CT) of the chest was performed without intravenous contrast. Automated exposure control and iterative reconstruction technique were employed. The dose-length product (DLP) was 78.24 mGy-cm. COMPARISON: None. FINDINGS: There is mild scarring at the lung apices. There are two 3 mm nodules in left upper lobe. There is mild emphysema. There is mild atelectasis in right lower lobe. No pleural effusion. The heart size is normal. No pericardial effusion. There is mild thoracic spondylosis and severe cervical spondylosis. IMPRESSION: 1. Lung-RADS category 2: Benign appearance or behavior. Continue annual screening with noncontrast low-dose chest CT in 12 months. Reviewed, dictated and finalized at location E. IMPRESSION: 1. Lung-RADS category 2: Benign appearance or behavior. Continue annual screeni ng with noncontrast low-dose chest CT in 12 months.
--- OUTSIDE RECORDS SUMMARY | 2025-02-18 10:35 | XMS_ITS | Clinical Summary ---
Author Organization [facility] [employer] Address [address] [place] [address] Care Team Providers Care Drapery Counselor Name Role Phone Orlando Leal MD Primary Care Provider [phone] Source Comments [facility],non-owned Affiliates and Associated Physician Practices is amultiple site organization consisting of ambulatory clinics and hospital sitesin [place], [place], [place] and [place]. This disclosure is being madepursuant to the Care Everywhere program and may not contain all information available regarding this patient. Last updated 18.[facility] [employer] Allergies No known active allergies Medications * [...] - Risk 60-74 years 1-dose series) 2022 DEPRESSION SCREENING 04/22/2024 COVID-19 VACCINE (3 - 2024- season) 2024 03/11/2021, 02/04/2021 INFLUENZA VACCINE (#1) 2024 COLOGUARD (AGES 45-75) [...] Not detected IU/mL 10/07/2023 12:52 PM CDT [facility] Hepatitis C RNA PCR, Interp Detected( A) Not detected 10/07/2023 12:52 PM CDT [facility] Hepatitis C Quant by PCR, Log 1.7 log IU/mL 10/07/2023 12:52 PM CDT [facility] Blood BLOOD SPECIMEN / Unknown Lab Venipuncture / Unknown 10/04/2023 1:24 PM CDT 10/04/2023 1:48 PM CDT Narrative [facility] - 10/07/2023 12:52 PM CDT The Hepatitis C viral (HCV) RNA analysis utilized a serum sample, real-time reverse design printer balloon PCR, and is reported as Not Detected, [...] the isolation of HCV RNA with reverse design printer balloon of genomic HCV RNA followed by real-time PCR in the presence of an unrelated RNA internal control. The internal control ensures that RNA is isolated, and that no general significant inhibitors of the RT-PCR process are present. The analysis was performed using a U.S. FDA approved test methodology. Nancy Santillan DIESEL DRAGLINE OPERATOR-MOTORCYCLE TESTER LAB - CHEMISTRY KARY MOORE Final Result [facility] [address] [place], [place] [address], [facility] [phone] from Last 3 Months or Most Recently Relevant to Health Maintenance Insurance ANTHEM Care Teams Drapery Counselor Relationship Specialty Start Date End Date Orlando Leal MD [address] [place] [address] PCP - General Internal Medicine 07/26/23
--- OUTSIDE RECORDS SUMMARY | 2025-02-18 10:35 | XMS_ITS | Encounter Summary ---
Author Organization [facility] Address [address] [place] [address] Care Team Providers Care Funding Specialist Name Role Phone Orlando Leal MD Primary Care Provider [phone] Reason for Visit * Reason Onset Date Comments MEDICATION REFILL 10/01/2023 Encounter Details Date Type Department Care Team (Late st Contact Info) Description 10/01/2023 Refill [facility] [address], [place] [address] Nancy Santillan, VICE PRESIDENT BUSINESS & CORPORATE DEVELOPMENT-POCKET CREASER [address] [place] [id number] MEDICATION REFILL Social History Tobacco Use Types [...] on filedocumented in this encounter Care Teams Funding Specialist Relationship Specialty [place] [address] [place] [phone] PCP - General Internal Medicine 07/26/23 documented as of this encounter
== END 2025-02-18 09:46 | disposition home or self-care (01) ==
PROVIDERS: PCP Internal Medicine; Visit Provider Internal Medicine
DX: Z12.2 Encounter for screening for malignant neoplasm of respiratory organs (principal); Z87.891 Personal history of nicotine dependence; J98.4 Other disorders of lung; R91.8 Other nonspecific abnormal finding of lung field; J43.9 Emphysema, unspecified; J98.11 Atelectasis; M47.812 Spondylosis without myelopathy or radiculopathy, cervical region; M47.814 Spondylosis without myelopathy or radiculopathy, thoracic region
CPT/HCPCS: 71271